=== PATIENT | male | born 1955 | race Caucasian/White ===

== ENCOUNTER 2019-02-27 13:30 | Outpatient (CLI) | payer MEDICARE, OTHER ==
--- NOTE | 2019-02-27 13:49 | RAD ---
Right hand 3 views: 02/27/2019 COMPARISON: None HISTORY: Right hand pain FINDINGS: There is no displaced fracture or evidence of dislocation seen. Mild degenerative change at the first metacarpal phalangeal joint and first interphalangeal joint not ed. There is degenerative change also noted at the level of the third, fourth, and fifth distal interphal angeal joints. A small calcific density measuring 3-4 mm is seen along the dorsal aspect of the third middle phalanx distally which could represent an age indeterminant fracture fragment or a soft tissue calcification. Clinical correlation for point tenderness in this region suggested to exclude acute in jury. IMPRESSION: Multilevel degenerative change. Calcific density along the dorsal aspect of third middle phalanx distally as detailed above.
== END 2019-02-27 13:31 | disposition home or self-care (01) ==
LOC: BICRAD 13:30
PROVIDERS: ATTEND Internal Medicine Geriatric Medicine
DX: M79.641 Pain in right hand (principal); M19.041 Primary osteoarthritis, right hand; M85.841 Other specified disorders of bone density and structure, right hand